=== PATIENT | male | born 1955 | race Two or more races ===

== ENCOUNTER 2021-04-05 03:23 | Emergency (ER) | payer OTHER ==
[~2021-04-05] VITALS: Ht 177.8 cm; Wt 81.6 kg
[2021-04-05] MEDS ORDERED: EPINEPHrine HCL 1 MG/10 ML SYRG IV ONE (03:24)
[2021-04-05] MEDS ORDERED: SODIUM BICARBONATE 8.4% INJ 50ML SYRINGE IV ONE (03:24)
[2021-04-05 03:30] VITALS: BP 0/0
== END 2021-04-05 03:33 ==
LOC: ER 03:23 → EDBD 03:23 → ER 03:33
DX: I46.9 Cardiac arrest, cause unspecified (principal)
CPT/HCPCS: 99285; J0171